=== PATIENT | female | born 1995 | race African-American/Black ===

== ENCOUNTER 2021-03-31 14:39 | Emergency (ER) | payer OTHER ==
[~2021-03-31] VITALS: Ht 165.1 cm; Wt 72.7 kg
[2021-03-31] MEDS ORDERED: FAMOTIDINE INJ 20MG/2ML VIAL (S0028 PER 1) IVP ONE (15:00)
[2021-03-31] MEDS ORDERED: diphenhydrAMINE 50MG/ML VIAL (J1200) IV ONE (15:00)
[2021-03-31] MEDS ORDERED: methylPREDNISolone 125MG 2ML VIAL IV ONE (15:00)
[2021-03-31] MEDS ORDERED: NS 1,000 ML IV ONE (15:00)
[2021-03-31 15:22] LABS: BASO % 0.5 % (0.0-1.0); EOS # 0.1 10^3/uL (0.0-0.5); EOS % 1.1 % (0.0-3.0); HEMATOCRIT 39.8 % (36.0-47.0); HEMOGLOBIN 14.1 g/dl (12.0-15.5); LYMPH # 2.8 10^3/uL (1.5-5.0); LYMPH % 44.8 % (24.0-44.0); MEAN CORPUSCULAR HEMOGLOBIN 29.1 pg (27.0-33.0); MEAN CORPUSCULAR HGB CONC 35.4 g/dl (32.0-36.5); MEAN CORPUSCULAR VOLUME 82.1 fl (80.0-96.0); MONO # 0.6 10^3/uL (0.0-0.8); MONO % 9.3 % (2.0-8.0); NEUTROPHILS # 2.7 10^3/uL (1.5-8.5); NEUTROPHILS % 44.1 % (36.0-66.0); PLATELET COUNT, AUTOMATED 244 10^3/uL (150-450); RED BLOOD COUNT 4.85 10^6/uL (4.00-5.40); WHITE BLOOD COUNT 6.2 10^3/uL (4.0-10.0)
[2021-03-31 15:44] LABS: BLOOD UREA NITROGEN 10 MG/DL (7-18); CARBON DIOXIDE LEVEL 28 MEQ/L (21-32); CHLORIDE LEVEL 108 MEQ/L (98-107); GLOMERULAR FILTRATION RATE > 60.0 (>60); GLUCOSE, FASTING 86 MG/DL (70-100); POTASSIUM SERUM 4.2 MEQ/L (3.5-5.1); SODIUM LEVEL 140 MEQ/L (136-145)
[2021-03-31] MEDS ORDERED: PRED20TA PO (17:54)
[2021-03-31] MEDS ORDERED: PEPC1TAB5 PO (17:54)
[2021-03-31] MEDS ORDERED: BENA25CA4 PO (17:55)
[2021-03-31 18:06] VITALS: BP 111/74
== END 2021-03-31 18:07 | disposition home or self-care (01) ==
LOC: M ED 14:39
DX: R22.0 Localized swelling, mass and lump, head (principal); T78.3XXA Angioneurotic edema, initial encounter; T78.40XA Allergy, unspecified, initial encounter; Y92.9 Unspecified place or not applicable; Y93.9 Activity, unspecified; Z91.013 Allergy to seafood; Z91.018 Allergy to other foods
CPT/HCPCS: 80048; 85025; 93041; 94760; 96361; 96374; 96375; 99284; J1200; J2930

== ENCOUNTER 2021-04-02 10:51 | Emergency (ER) | payer OTHER ==
[~2021-04-02] VITALS: Ht 165.1 cm; Wt 66.5 kg
[~2021-04-02 10:51] MED LIST: BENA25CA4 PO; PEPC1TAB5 PO; PRED20TA PO
[2021-04-02] MEDS ORDERED: FAMOTIDINE INJ 20MG/2ML VIAL (S0028 PER 1) IVP ONE (11:20)
[2021-04-02] MEDS ORDERED: methylPREDNISolone 125MG 2ML VIAL IV ONE (11:20)
[2021-04-02] MEDS ORDERED: diphenhydrAMINE 50MG/ML VIAL (J1200) IV ONE (11:20)
[2021-04-02] MEDS ORDERED: NS 1,000 ML IV ONE (11:20)
[2021-04-02 12:06] LABS: BASO % 0.1 % (0.0-1.0); EOS % 0.1 % (0.0-3.0); HEMOGLOBIN 14.4 g/dl (12.0-15.5); LYMPH # 2.8 10^3/uL (1.5-5.0); LYMPH % 27.1 % (24.0-44.0); MEAN CORPUSCULAR HEMOGLOBIN 29.2 pg (27.0-33.0); MEAN CORPUSCULAR HGB CONC 35.1 g/dl (32.0-36.5); MEAN CORPUSCULAR VOLUME 83.2 fl (80.0-96.0); MONO # 0.4 10^3/uL (0.0-0.8); MONO % 3.9 % (2.0-8.0); NEUTROPHILS % 68.5 % (36.0-66.0); PLATELET COUNT, AUTOMATED 251 10^3/uL (150-450); RED BLOOD COUNT 4.93 10^6/uL (4.00-5.40); WHITE BLOOD COUNT 10.3 10^3/uL (4.0-10.0)
[2021-04-02 12:28] LABS: HCG, SERUM QUALITATIVE NEGATIVE (NEGATIVE)
[2021-04-02 12:49] LABS: ALBUMIN 3.7 GM/DL (3.2-5.2); ALT/SGPT 17 U/L (12-78); BILIRUBIN,DIRECT 0.2 MG/DL (0.0-0.2); BILIRUBIN,TOTAL 0.6 MG/DL (0.2-1.0); BLOOD UREA NITROGEN 13 MG/DL (7-18); CALCIUM LEVEL 9.3 MG/DL (8.5-10.1); CARBON DIOXIDE LEVEL 28 MEQ/L (21-32); CHLORIDE LEVEL 106 MEQ/L (98-107); COMPLEMENT C4 19 MG/DL (10-40); CREATININE FOR GFR 0.68 MG/DL (0.55-1.30); GLOMERULAR FILTRATION RATE > 60.0 (>60); GLUCOSE, FASTING 79 MG/DL (70-100); POTASSIUM SERUM 4.2 MEQ/L (3.5-5.1); SODIUM LEVEL 139 MEQ/L (136-145); TOTAL PROTEIN 7.2 GM/DL (6.4-8.2)
[2021-04-02 12:55] LABS: ERYTHROCYTE SEDIMENTATION RATE 4 mm/hr (0-20)
[2021-04-02] MEDS ORDERED: CETI-24 PO (14:17)
[2021-04-02] MEDS ORDERED: PRED20TA PO (14:17)
[2021-04-02] MEDS ORDERED: EPIP0.3I2 IM (14:18)
[2021-04-02 14:25] VITALS: BP 120/69
[2021-04-05 01:07] LABS: C1 ESTER INHIB. NON FUNCTIONAL 31 mg/dL (21-39); COAGULATION FACTOR XII ACTIVIT 136 % (50-150); TRYPTASE 5.6 ug/L (2.2-13.2)
== END 2021-04-02 14:38 | disposition home or self-care (01) ==
LOC: M ED 10:51
DX: T78.3XXA Angioneurotic edema, initial encounter (principal); T78.40XA Allergy, unspecified, initial encounter; Y92.9 Unspecified place or not applicable; Y93.9 Activity, unspecified; Z79.899 Other long term (current) drug therapy; Z91.013 Allergy to seafood; Z91.018 Allergy to other foods
CPT/HCPCS: 80048; 80076; 83519; 84703; 85025; 85280; 85652; 86140; 86160; 86161; 96361; 96374; 96375; 99284; J1200; J2930

== ENCOUNTER 2021-05-13 20:38 | Emergency (ER) | payer OTHER ==
[~2021-05-13] VITALS: Ht 165.1 cm; Wt 66.9 kg
[2021-05-13 20:38] VITALS: BP 117/71
[~2021-05-13 20:38] MED LIST changes: +CETI-24 PO; +EPIP0.3I2 IM
== END 2021-05-13 22:00 | disposition left against medical advice (07) ==
LOC: M ED 20:38
DX: Z53.21 Procedure and treatment not carried out due to patient leaving prior to being seen by health care provider (principal)